=== PATIENT | male | born 1970 | race Caucasian/White ===

== ENCOUNTER → 2019-03-25 | Outpatient (CLI) | payer OTHER ==
--- NOTE | 2019-03-25 16:47 | XR ---
Right knee HISTORY: Right knee pain 3 views of the right knee Bone mineralization, joint spaces and alignment are maintained. No evident joint effusion. No fractur e or dislocation. IMPRESSION: Normal right knee
--- NOTE | 2019-03-25 16:55 | XR ---
Lumbar spine HISTORY: Back pain, M 54.5, M 25.561 3 views of the lumbar spine Lumbar vertebral bodies show preserved height. Minimal retrolisthesis grade 1 L2-3, L5-S1. Loss of di sc height present at L2-3, L1-2, L3-4. Sclerosis in the posterior elements is compatible with facet a rthropathy. Bone mineralization is maintained. IMPRESSION: Degenerative disc disease and facet arthropathy.
== END | disposition home or self-care (01) ==
LOC: RADXRMAIN 13:04
PROVIDERS: ATTEND Family Medicine
DX: M51.36 Other intervertebral disc degeneration, lumbar region (principal); M46.96 Unspecified inflammatory spondylopathy, lumbar region; M25.561 Pain in right knee
CPT/HCPCS: 72100